=== PATIENT | male | born 1955 | race African-American/Black ===

== ENCOUNTER 2024-05-02 09:04 | Outpatient (AMB) | payer OTHER, SELFPAY ==
[2024-05-02 09:50] VITALS: BP 144/90; PULSE 66; RESP 18; TEMP 36.4; O2SAT 95; BMI 42.0
--- NOTE | 2024-05-02 09:50 | PD.ORTHCLVIS ---
Vital signs 05/02/24 09:50 Height 1.98 m Height Method Stated Weight 164.739 kg Weight Measurement Method Standing Scale BMI 42.0 BP 144/90 H Blood Pressure Source Automatic Cuff Blood Pressure Location Left Upper Arm Position Sitting Respiration 18 Pulse 66 Pulse Source Monitor Temp 97.6 F Temp Source Temporal Artery Scan Pulse Oximetry (%) 95 Oxygen Delivery Method Room Air Med/Allergies Allergies & Medications Allergies No Known Allergies Allergy (Verified 05/02/24 09:51) Medication Reconciliation amlodipine 10 mg tablet 10 mg PO QDAY 12/28/23 [History Confirmed 05/02/24] ibuprofen 800 mg tablet 800 mg PO Q6H 12/28/23 [History Confirmed 05/02/24] losartan 100 mg tablet 100 mg PO QDAY 12/28/23 [History Confirmed 05/02/24] Exam Exam Patient is in no acute distress and is cooperative with the examination today. Patient has a normal mood and affect. Breathing is nonlabored. In no respiratory distress. Bilateral extremities were evaluated and demonstrates sensation intact to light touch. Palpable pedal pulses are present. No significant edema is present. Right hip range of motion is painful. He has limited internal rotation. For the left knee, he is tender to palpation medially and laterally. The knee feels stable varus and valgus stress as well as AP translation. Range of motion 0 to 110 degrees. X-rays of the left knee [facility]. This demonstrates complete obliteration of the medial lateral joint space. Osteophytes are present. There is varus deformity. For the right hip. There is significant right hip osteoarthritis with complete obliteration of the joint space as well. There is a recon nail line. The hardware is in good position alignment Assessment and Plan Problem List (1) Arthritis of knee, left: Status: Acute Plan: Patient is a 68-year-old female with significant left knee pain and left knee arthritis. We discussed nonoperative and operative options. He has never tried injections and we discussed that we could try it. We also discussed weight loss in great detail. (2) Arthritis of right hip: Status: Acute Plan: Recommend knee cortisone injection as patient would like to proceed with conservative treatment at this time. The risks and benefits of the procedure were reviewed with the patient and patient gave verbal consent to continue with the procedure. Procedure: performed by Dr. Barrera Using sterile technique the left knee was thoroughly prepped with alcohol, and approximately 1 cc of Kenalog 40 mg/mL and 4 cc of 1% lidocaine was injected without resistance into the medial tibial femoral joint space. The patient tolerated the procedure. Advanced Care Planning Discussion Advance care planning discussed with:: patient Office Procedures GNS Level of Care Nursing/Assessment Patient Status: Established Patient Nursing Assessment/Reassesment: Medication Reconciliation, Update PMH in EMR and Vital Signs Coordination of Care: Complex Care and Chronic Disease 1-5, Education Complex Pt/Fam, Consent,records obtained, informed consent, Results/Orders obtained and Staff clarify orders Established Patient Charge Established Patient Point Assignment: 95 Established Patient Point Charge: EP Level 3 (80-115) MA Intake Visit Data Collection New Patient or Established: Established Patient (seen at [facility] within 3 years) Reason for Visit:: LEFT KNEE PAIN/REQ INJECTION Seen by Clinical Staff ONLY (RN/MA): No PCP or OBGYN visit in last 3 months: Yes Hx Now: No Do You Feel Safe at Home: Yes Authorities Contacted: N/A Questionairres Past Medical History Past Medical History Have you ever been diagnosed with any of the following: Respiratory Problems Smoking: No Smoking Exposure: No Subjective Visit Visit for: follow up visit and knee (LEFT) Immunization / Flu Flu Vaccine in the Last 12 Months: No Flu Vaccine Exclusion Criteria: No Exclusion Criteria History of Present Illness Chief complaint: left knee pain Tam is a pleasant 68-year-old male with left knee pain and right hip pain. He has had right knee pain for over 5 years. He has not had any injections. He had a prior meniscectomy and ACL repair in the 80s. He tried physical therapy and ibuprofen. He is actually lost 40 pounds recently. For the right hip, he has a prior recall nail that occurred over 30 years ago at [place]. He reports significant groin pain and right hip pain for the last 6 months in particular. Pain Pain level (0-10): 0 Pain location: inside (medial) Pain quality: sharp and aching Pain timing: night, increases with activity and stairs Ambulatory data Ambulatory device: none Treatments Improvement with previous injections: No Improvement with PT: No Improvement with NSAIDS: no Review of Systems Review of Systems: All systems negative unless otherwise noted in HPI.
== END 2024-05-02 10:18 | disposition home or self-care (01) ==
LOC: HODSRG 09:04
PROVIDERS: PCP Family Medicine; Referring Provider Family Medicine; Supervising Provider Orthopaedic Surgery Adult Reconstructive Orthopaedic Surgery; Visit Provider Orthopaedic Surgery Adult Reconstructive Orthopaedic Surgery
DX: M17.12 Unilateral primary osteoarthritis, left knee (principal); M25.562 Pain in left knee; M16.11 Unilateral primary osteoarthritis, right hip
CPT/HCPCS: 20610; 99213; J3301; J3490; G0463

== ENCOUNTER 2024-05-16 11:15 | Outpatient (AMB) | payer OTHER, SELFPAY ==
--- NOTE | 2024-05-16 10:53 | ORTHONT_ITS ---
Med/Allergies Allergies & Medications Allergies No Known Allergies Allergy (Verified 05/16/24 10:54) Medication Reconciliation amlodipine 10 mg tablet 10 mg PO QDAY 12/28/23 [History Confirmed 05/16/24] ibuprofen 800 mg tablet 800 mg PO Q6H 12/28/23 [History Confirmed 05/16/24] losartan 100 mg tablet 100 mg PO QDAY 12/28/23 [History Confirmed 05/16/24] Subjective Visit Visit for: follow up visit, knee and x-rays Immunization / Flu Flu Vaccine in the Last 12 Months: No Flu Vaccine Exclusion Criteria: No Exclusion Criteria History of Present Illness Chief complaint: F/U TELEMED XRAYS Tam is a pleasant 68-year-old male with left knee pain and right hip pain. He has had right knee pain for over 5 years. He has not had any injections. He had a prior meniscectomy and ACL repair in the 80s. He tried physical therapy and ibuprofen. He is actually lost 40 pounds recently. For the right hip, he has a prior recall nail that occurred over 30 years ago at [place]. He reports significant groin pain and right hip pain for the last 6 months in particular. A surgeon in [place] is doing his right hip replacement. He will touch base with regarding his his left knee afterwards. Personal History Occupation: RETIRED Hobbies: SPORTS Red flag PMH: none Pain Pain level (0-10): 5 Pain duration: ALL DAY Pain location: inside (medial), outside (lateral), anterior and posterior Pain quality: sharp, dull and aching Pain timing: increases with activity Associated signs & symptoms: none Ambulatory data Ambulatory device: cane Treatments Number of previous injections: 0 Improvement with previous injections: No Number of Physical Therapy sessions: 0 Improvement with PT: No Improvement with NSAIDS: no Review of Systems Review of Systems: All systems negative unless otherwise noted in HPI. Assessment and Plan Problem List (1) Arthritis of knee, left: Status: Acute Plan: Patient is a 68-year-old female with significant left knee pain and left knee a rthritis. We discussed nonoperative and operative options. He has never tried injections and we discussed that we could try it. We also discussed weight loss in great detail. This visit was mainly to look at his right knee. He has severe right knee arthritis The plan for now is to get his right hip [facility]. They would remove the hardware first followed by a total hip replacement (2) Arthritis of right hip: Status: Acute Advanced Care Planning Discussion Advance care planning discussed with:: patient Office Procedures GNS Level of Care Nursing/Assessment Patient Status: Established Patient Nursing Assessment/Reassesment: Medication Reconciliation, Update PMH in EMR and Vital Signs Coordination of Care: Complex Care and Chronic Disease 1-5, Education Complex Pt/Fam, Consent,records obtained, informed consent, Results/Orders obtained and Staff clarify orders Established Patient Charge Established Patient Point Assignment: 95 Telehealth Telemed Phone/Video with patient at home & Dr,PA,IMPORT MANAGER: Yes
== END 2024-05-16 11:18 | disposition home or self-care (01) ==
LOC: HODSRG 11:15
PROVIDERS: PCP Family Medicine; Referring Provider Family Medicine; Supervising Provider Orthopaedic Surgery Adult Reconstructive Orthopaedic Surgery; Visit Provider Orthopaedic Surgery Adult Reconstructive Orthopaedic Surgery
DX: M17.0 Bilateral primary osteoarthritis of knee (principal); M16.11 Unilateral primary osteoarthritis, right hip; M25.562 Pain in left knee
CPT/HCPCS: 99212; G0463

== ENCOUNTER 2025-01-20 14:06 | Outpatient (AMB) | payer OTHER, SELFPAY ==
--- NOTE | 2025-01-20 14:15 | PD.ORTHCLVIS ---
Vital signs 01/20/25 14:16 Height 1.98 m Height Method Measured Weight 169.19 kg Weight Measurement Method Standing Scale BMI 43.1 BP 152/92 H Blood Pressure Source Automatic Cuff Blood Pressure Location Left Upper Arm Position Sitting Respiration 18 Pulse 74 Pulse Source Monitor Temp 96.3 F L Temp Source Temporal Artery Scan Pulse Oximetry (%) 97 Oxygen Delivery Method Room Air Med/Allergies Allergies & Medications Allergies No Known Allergies Allergy (Verified 01/20/25 14:17) Medication Reconciliation amlodipine 10 mg tablet 10 mg PO QDAY 12/28/23 [History Confirmed 01/20/25] ibuprofen 800 mg tablet 800 mg PO Q6H 12/28/23 [History Confirmed 01/20/25] losartan 100 mg tablet 100 mg PO QDAY 12/28/23 [History Confirmed 01/20/25] Exam Exam Patient is in no acute distress and is cooperative with the examination today. Patient has a normal mood and affect. Breathing is nonlabored. In no respiratory distress. Bilateral extremities were evaluated and demonstrates sensation intact to light touch. Palpable pedal pulses are present. No significant edema is present. Right hip range of motion is painful. He has limited internal rotation. For the left knee, he is tender to palpation medially and laterally. The knee feels stable varus and valgus stress as well as AP translation. Range of motion 0 to 110 degrees. X-rays of the left knee were reviewed from [facility]. This demonstrates complete obliteration of the medial lateral joint space. Osteophytes are present. There is varus deformity. For the right hip. There is significant right hip osteoarthritis with complete obliteration of the joint space as well. There is a recon nail line. The hardware is in good position alignment Assessment and Plan Problem List (1) Arthritis of knee, left: Status: Acute Plan: Patient is a 68-year-old female with significant left knee pain and bilateral knee arthritis. We discussed nonoperative and operative options. He would like a bilateral knee injections today. We also discussed weight loss in great detail Recommend knee cortisone injection as patient would like to proceed with conservative treatment at this time. The risks and benefits of the procedure were reviewed with the patient and patient gave verbal consent to continue with the procedure. Procedure: performed by Dr. Barrera Using sterile technique the Right knee was thoroughly prepped with alcohol, and approximately 1 cc of Depo-Medrol 80mg/mL and 4 cc of 0.2% ropivacaine was injected without resistance into the medial tibial femoral joint space. The patient tolerated the procedure. Recommend knee cortisone injection as patient would like to proceed with conservative treatment at this time. The risks and benefits of the procedure were reviewed with the patient and patient gave verbal consent to continue with the procedure. Procedure: performed by Dr. Barrera Using sterile technique the leftknee was thoroughly prepped with alcohol, and approximately 1 cc of Depo-Medrol 80mg/mL and 4 cc of 0.2% ropivacaine was injected without resistance into the medial tibial femoral joint space. The patient tolerated the procedure. (2) Arthritis of right hip: Status: Acute Advanced Care Planning Discussion Advance care planning discussed with:: patient Office Procedures GNS Level of Care Nursing/Assessment Patient Status: Established Patient Nursing Assessment/Reassesment: Medication Reconciliation, Update PMH in EMR and Vital Signs Coordination of Care: Complex Care and Chronic Disease 1-5, Education Complex Pt/Fam, Consent,records obtained, informed consent, Results/Orders obtained and Staff clarify orders Established Patient Charge Established Patient Point Assignment: 95 Established Patient Point Charge: EP Level 3 (80-115) Surgical Proc/IM SQ injection Minor Surgical Procedure: Yes Medication Given Medication Given Medication Given: Yes Documented Dose Given: 2 Route: Infiitration Medication Given Medication Given Medication Given: Yes Documented Dose Given: 8 Route: Infiitration Office Meds methylprednisolone acetate 80 mg/mL suspension for injection Performing Provider: Amado Barrera MD Performing Location: [facility] Administered by: Amado Barrera MD on 01/20/25 14:28 Dose Route Admin Location Dispensed Lot Number Expiration Date Package [facility] [employer] 80 mg intra-articular 1 mL [address]-6 [id number] [employer] ropivacaine (PF) 2 mg/mL (0.2 %) injection solution Performing Provider: Amado Barrera MD Performing Location: [facility] Administered by: Amado Barrera MD on 01/20/25 14:28 Dose Route Admin Location Dispensed Lot Number Expiration Date Package [facility] [employer] Director 20 mL Infiltration 20 mL [id number] [id number] [facility] Intake Visit Data Collection New Patient or Established: Established Patient (seen at [facility] within 3 years) Reason for Visit:: BILATERAL KNEE PAIN Seen by Clinical Staff ONLY (RN/MA): No Rehabilitation Program Manager Required: No PCP or OBGYN visit in last 3 months: Yes Hx Now: No Do You Feel Safe at Home: Yes Authorities Contacted: N/A Questionairres Past Medical History Past Medical History Have you ever been diagnosed with any of the following: Respiratory Problems Smoking: No Smoking Exposure: No Subjective Visit Visit for: follow up visit and knee Immunization / Flu Flu Vaccine in the Last 12 Months: No Flu Vaccine Exclusion Criteria: No Exclusion Criteria History of Present Illness Chief complaint: BILATERAL KNEE PAIN Tam is a pleasant 68-year-old male with left knee pain and right hip pain. He has had right knee pain for over 5 years. He has not had any injections. He had a prior meniscectomy and ACL repair in the 80s. He tried physical therapy and ibuprofen. He is actually lost 40 pounds recently. For the right hip, he has a prior recall nail that occurred over 30 years ago at [place]. He reports significant groin pain and right hip pain for the last 6 months in particular. He recently had his right hip hardware removed. He is getting a right hip replacement soon and he would like a cortisone injection to both knees and likely left knee replacement once he recovers from his right hip replacement Pain Pain level (0-10): 0 Pain location: inside (medial) Pain quality: sharp and aching Pain timing: night, increases with activity and stairs Ambulatory data Ambulatory device: none Treatments Improvement with previous injections: No Improvement with PT: No Improvement with NSAIDS: no Review of Systems Review of Systems: All systems negative unless otherwise noted in HPI.
[2025-01-20 14:16] VITALS: BP 152/92; PULSE 74; RESP 18; TEMP 35.7; O2SAT 97; BMI 43.1
== END 2025-01-20 14:32 | disposition home or self-care (01) ==
LOC: HODSRG 14:06
PROVIDERS: PCP Family Medicine; Referring Provider Family Medicine; Supervising Provider Orthopaedic Surgery Adult Reconstructive Orthopaedic Surgery; Visit Provider Orthopaedic Surgery Adult Reconstructive Orthopaedic Surgery
DX: M17.0 Bilateral primary osteoarthritis of knee (principal); M25.562 Pain in left knee; M16.11 Unilateral primary osteoarthritis, right hip; M25.551 Pain in right hip
CPT/HCPCS: 20610; 99213; J1010; J2795; G0463

== ENCOUNTER 2025-04-21 13:44 | Outpatient (AMB) | payer OTHER, SELFPAY ==
[2025-04-21 14:11] VITALS: BP 160/78; PULSE 92; RESP 18; TEMP 36.5; O2SAT 97; BMI 42.2
--- NOTE | 2025-04-21 14:11 | ORTHONT_ITS ---
Vital signs 04/21/25 14:11 Height 1.98 m Height Method Stated Weight 165.59 kg Weight Measurement Method Standing Scale BMI 42.2 BP 160/78 H Blood Pressure Source Automatic Cuff Blood Pressure Location Left Upper Arm Position Sitting Respiration 18 Pulse 92 Pulse Source Monitor Temp 97.7 F Temp Source Temporal Artery Scan Pulse Oximetry (%) 97 Oxygen Delivery Method Room Air Med/Allergies Allergies & Medications Allergies No Known Allergies Allergy (Verified 04/21/25 14:12) Medication Reconciliation amlodipine 10 mg tablet 10 mg PO QDAY 12/28/23 [History Confirmed 04/21/25] ibuprofen 800 mg tablet 800 mg PO Q6H 12/28/23 [History Confirmed 04/21/25] losartan 100 mg tablet 100 mg PO QDAY 12/28/23 [History Confirmed 04/21/25] Exam Exam Patient is in no acute distress and is cooperative with the examination today. Patient has a normal mood and affect. Breathing is nonlabored. In no respiratory distress. Bilateral extremities were evaluated and demonstrates sensation intact to light touch. Palpable pedal pulses are present. No significant edema is present. Right hip range of motion is painful. He has limited internal rotation. For the left knee, he is tender to palpation medially and laterally. The knee feels stable varus and valgus stress as well as AP translation. Range of motion 0 to 110 degrees. X-rays of the left knee were reviewed from [facility]. This demonstrates complete obliteration of the medial lateral joint space. Osteophytes are present. There is varus deformity. For the right hip. There is significant right hip osteoarthritis with complete obliteration of the joint space as well. There is a recon nail line. The hardware is in good position alignment Assessment and Plan Problem List (1) Arthritis of knee, left: Status: Acute Plan: Patient is a 68-year-old female with significant left knee pain and bilateral knee arthritis. We discussed nonoperative and operative options. He would like a bilateral knee injections today. We also discussed weight loss in great detail Recommend knee cortisone injection as patient would like to proceed with conservative treatment at this time. The risks and benefits of the procedure were reviewed with the patient and patient gave verbal consent to continue with the procedure. Procedure: performed by Dr. Barrera Using sterile technique the Right knee was thoroughly prepped with alcohol, and approximately 1 cc of Depo-Medrol 80mg/mL and 4 cc of 0.2% ropivacaine was injected without resistance into the medial tibial femoral joint space. The patient tolerated the procedure. Recommend knee cortisone injection as patient would like to proceed with conservative treatment at this time. The risks and benefits of the procedure were reviewed with the patient and patient gave verbal consent to continue with the procedure. Procedure: performed by Dr. Barrera Using sterile technique the leftknee was thoroughly prepped with alcohol, and approximately 1 cc of Depo- Medrol 80mg/mL and 4 cc of 0.2% ropivacaine was injected without resistance into the medial tibial femoral joint space. The patient tolerated the procedure. (2) Arthritis of right hip: Status: Acute Advanced Care Planning Discussion Advance care planning discussed with:: patient Office Procedures GNS Level of Care Nursing/Assessment Patient Status: Established Patient Nursing Assessment/Reassesment: Medication Reconciliation, Update PMH in EMR and Vital Signs Coordination of Care: Complex Care and Chronic Disease 1-5, Education Complex P t/Fam, Consent,records obtained, informed consent, Results/Orders obtained and Staff clarify orders Established Patient Charge Established Patient Point Assignment: 95 Established Patient Point Charge: EP Level 3 (80-115) Surgical Proc/IM SQ injection Minor Surgical Procedure: Yes (BILATERAL KNEE INJECTION) Medication Given Medication Given Medication Given: Yes Documented Dose Given: 2 Route: Infiitration Medication Given Medication Given Medication Given: Yes Documented Dose Given: 8 Route: Infiitration Office Meds methylprednisolone acetate 80 mg/mL suspension for injection Performing Provider: Amado Barrera MD Performing Location: [facility] Administered by: Amado Barrera MD on 04/21/25 14:51 Dose Route Admin Location Dispensed Lot Number Expiration Date Pack age [facility] [employer] Set Operator 160 mg intra-articular KNEE 2 mL [id number] 12/20/26 [address]-7 [id number] [employer] ropivacaine (PF) 2 mg/mL (0.2 %) injection solution Performing Provider: Amado Barrera MD Performing Location: [facility] Administered by: Amado Barrera MD on 04/21/25 14:51 Dose Route Admin Location Dispensed Lot Number Expiration Date Pack age [facility] Motor Generator Set Operator 40 mL Infiltration KNEE 40 mL [id number] 09/19/28 13894-784-58 [id number] FRESENIUS KABI MA Intake Visit Data Collection New Patient or Established: Established Patient (seen at [facility] within 3 years) Reason for Visit:: BILATERAL KNEE PAIN Seen by Clinical Staff ONLY (RN/MA): No Professor Of Nursing Required: No PCP or OBGYN visit in last 3 months: Yes Hx Now: No Do You Feel Safe at Home: Yes Authorities Contacted: N/A Questionairres Past Medical History Past Medical History Have you ever been diagnosed with any of the following: Respiratory Problems Smoking: No Smoking Exposure: No Subjective Visit Visit for: follow up visit and knee Immunization / Flu Flu Vaccine in the Last 12 Months: No Flu Vaccine Exclusion Criteria: No Exclusion Criteria History of Present Illness Chief complaint: BILATERAL KNEE PAIN Tam is a pleasant 68-year-old male with left knee pain and right hip pain. He has had right knee pain for over 5 years. He has not had any injections. He had a prior meniscectomy and ACL repair in the 80s. He tried physical therapy and ibuprofen. He is actually lost 40 pounds recently. For the right hip, he has a prior recall nail that occurred over 30 years ago at [place]. He reports significant groin pain and right hip pain for the last 6 months in particular. He recently had his right hip hardware removed. He is getting a right hip replacement soon and he would like bilateral knee injections Pain Pain level (0-10): 0 Pain location: inside (medial) Pain quality: sharp and aching Pain timing: night, increases with activity and stairs Ambulatory data Ambulatory device: none Treatments Improvement with previous injections: No Improvement with PT: No Improvement with NSAIDS: no Review of Systems Review of Systems: All systems negative unless otherwise noted in HPI.
== END 2025-04-21 14:37 | disposition home or self-care (01) ==
LOC: HODSRG 13:44
PROVIDERS: PCP Family Medicine; Referring Provider Family Medicine; Supervising Provider Orthopaedic Surgery Adult Reconstructive Orthopaedic Surgery; Visit Provider Orthopaedic Surgery Adult Reconstructive Orthopaedic Surgery
DX: M17.0 Bilateral primary osteoarthritis of knee (principal); M16.11 Unilateral primary osteoarthritis, right hip; M25.562 Pain in left knee; M25.561 Pain in right knee; M25.551 Pain in right hip
CPT/HCPCS: 20610; 99213; J1010; J2795; G0463